=== PATIENT | male | born 1960 | race Caucasian/White ===

== ENCOUNTER → 2020-04-29 18:00 | Outpatient (BNVA) | payer SELFPAY | PROVIDERS: Visit Provider Nurse Practitioner Family | DX: J11.1 Influenza due to unidentified influenza virus with other respiratory manifestations (principal); F41.0 Panic disorder [episodic paroxysmal anxiety]; R50.9 Fever, unspecified; Z20.818 Contact with and (suspected) exposure to other bacterial communicable diseases | CPT/HCPCS: 87400; 87635 ==

== ENCOUNTER → 2020-10-10 09:54 | Outpatient (BNVA) | payer BC, SELFPAY | PROVIDERS: PCP Family Medicine; Visit Provider Surgery | DX: R10.9 Unspecified abdominal pain (principal) | CPT/HCPCS: 87635 ==

== ENCOUNTER 2020-10-15 05:49 | Day surgery (SDC) | payer BC, SELFPAY ==
[2020-10-14 10:33] VITALS: BMI 30.7
[2020-10-15] VITALS (8 sets, daily range): BP systolic 117–192; BP diastolic 59–108; PULSE 77–114; RESP 16–20; TEMP 36.5–36.9; O2SAT 95–99
[2020-10-15] MEDS: sodium chloride 0.9% 1,000 ML 30 ML IV (06:22)
--- NOTE | 2020-10-15 06:55 | W.PM.OPSUD ---
Surgery/Procedure H&P Update DATE OF PROCEDURE: October 15, 2020 DATE H&P PERFORMED: 09/30/20 H&P UPDATE INFORMATION: I have reviewed H&P completed within last 30 days, I have examined patient prior to procedure and No changes to prior documentation PLANNED PROCEDURE: Operation Date: 10/15/20 07:00 Proposed Procedures p Laparoscopic Cholecystectomy 24901 R10.9(Not Applicable) - Benito Fishman MD
[2020-10-15] MEDS: ciprofloxacin 400 MG/200 ML PREMIX 200 MG IV (07:10)
--- NOTE | 2020-10-15 07:18 | ANES.PREANE2 ---
Pre-Anesthetic Assessment Pre-Anesthetic Assessment: Height/Weight: Height 1.85 m Weight 105.687 kg Temp Pulse Resp BP Pulse Ox 98.5 F 114 H 18 192/108 98 10/15/20 06:13 10/15/20 06:13 10/15/20 06:13 10/15/20 06:13 10/15/20 06:13 Proposed Procedure: Operation Date: 10/15/20 07:00 Proposed Procedures p Laparoscopic Cholecystectomy 79331 R10.9(Not Applicable) - Benito Fishman MD Was Beta Betsy taken within 24 hours: N/A Last intake: Intake Last Liquid Date 10/14/20 Last Liquid Time 04:45 Last Solid Date 10/14/20 Last Solid Time 17:00 Social: Social History: No alcohol and No tobacco Exam: Pre-Anes Outpt Exam: alert, oriented x 3, clear to auscultation bilaterally and regular rate & rhythm Airway: Submandibular: WNL Cervical ROM: WNL MP: 2 Dentition: Full Pulmonary: Pulmonary: Sleep apnea CV/HEM: CV/HEM: HTN GI: GI: GERD Anesthetic Plan: ASA status: 3 Anesthesia: General Risk of > 500 ml blood loss (7ml/kg in children): No Meds/Allergies Current Medications: Current Medications Generic Name Dose Route Start Last Admin Trade Name Freq PRN Reason Stop Dose Admin Sodium Chloride 1,000 mls @ 30 ml s/hr 10/15/20 06:00 10/15/20 06:22 Sodium Chloride 0.9% IV 10/16/20 05:59 30 mls/hr .Q24H AN Administration PFSH Anesthesia PFSH: Medical History (Updated 09/30/20 @ 14:46 by Benito Fishman MD) BPH (benign prostatic hyperplasia) Hypertension Family History (Updated 09/30/20 @ 13:48 by LLOYD Díaz) Denies family history of Anesthesia complication Bleeding disorder Social History Smoking and tobacco status: never smoked Alcohol intake: never History of recent travel: No Current gender identity: Male Data Anesthesia Cardiac Studies: No Data to Display
--- NOTE | 2020-10-15 09:00 | PM.OP ---
Operative Report Date of procedure: October 15, 2020 Pre-op Diagnosis: cholelithiasis Post-op Diagnosis: Cholelithiasis Acute on chronic cholecystitis Procedure Done: Laparoscopic cholecystectomy Specimens removed/disposition: Gallbladder Surgeon: Benito Fishman Anesthesia: General Condition: stable Disposition: PACU Procedure: The patient was taken to the operating room and was intubated under general anesthesia. After the antibiotic had been administered, the abdomen was prepped and draped in a sterile manner. Using a #15 blade, a 1 centimeter infraumbilical curvilinear incision was made and using an open Sumit technique the peritoneal cavity was entered. A 10 millimeter port was placed and 15 millimeters of pneumoperitoneum was created. A 10 millimeter, 30 degrees scope was introduced. Three 5 millimeter ports were placed in the epigastric, midclavicular and the anterior axillary line two fingerbreadths below the costal margin on the right side under the direct visualization. The gallbladder wall was thickened and distended and packed with stones. An attempt was made to decompress the gallbladder with an aspiration needle but there was small amount of bile in the gallbladder was packed with stones. ratcheted forceps were introduced into the lateral most port and was used to retract the fundus of the gallbladder cephalad and using forceps the infundibulum of the gallbladder was retracted laterally. Using L-hook cautery the peritoneum overlying the Calot's triangle was opened medially and laterally until the cystic duct and the cystic artery were skeletonized.There was significant inflammation at the Calot's triangle. Dissection was carried along the body of the gallbladder and after ensuring critical view of safety, 4 clips applied on the cystic duct and 3 clips applied on the cystic artery and cut leaving, 3 clips on the remaining portion of the duct and 2 clips on the remaining portion of the artery. The rest of the gallbladder was dissected off the liver using L-hook cautery. The gallbladder wall was thickened and there was spillage of stones. There was no bleeding or bile leaking noted from the gallbladder fossa and the clips appeared to be in place. 2 EndoCatch bags were introduced to remove the gallbladder as well as all the spilled stones. All the ports were removed under direct visualization and there was no bleeding noted from the port sites. The fascia of the umbilicus was closed using [id number] 0 Vicryl sutures and the subcutaneous tissue was approximated using 3-0 Vicryl sutures. The skin at all four ports were closed using 4-0 Monocryl and surgical glue. A total of 10 millimeters of 0.5% Marcaine was infiltrated around the port sites. The patient was stable throughout the procedure.
--- NOTE | 2020-10-15 09:36 | SUR.PHASEI ---
PT ON RA TRIAL PT SLEEPS IF NOT DISTURBED GOOD RESP EFFORT, SATS 93-95% NO DISTRESS NOTED ABD LARGE SOFT WITH 4 SITES D/I, BILAT SCD ON AND WORKING.
[2020-10-15] MEDS: HYDROcodone-acetaminophen 5-325 mg Tablet 1 TAB PO (10:03)
--- NOTE | 2020-10-15 12:00 | ANE.PACU2 ---
Inpatient post-anesthesia follow up: Airway intact: Yes Vital signs: Temperature 98 F Pulse Rate 81 Respiratory Rate 18 Blood Pressure 128/77 Pulse Oximetry 96 Oxygen Delivery Me thod Room Air Oxygen Flow Rate 8 Fraction of Inspir ed Oxygen Hydration adequate: Yes Nausea and vomiting: No Pain level: 1 Mental status: Baseline
== END 2020-10-15 11:25 | disposition home or self-care (01) ==
PROVIDERS: PCP Family Medicine; Visit Provider Surgery
PROC: 0FT44ZZ Resection of Gallbladder, Percutaneous Endoscopic Approach (ICD-10-PCS; CPT 47562; principal; 2020-10-15 07:00)
DX: K80.10 Calculus of gallbladder with chronic cholecystitis without obstruction (principal); G47.30 Sleep apnea, unspecified; I10 Essential (primary) hypertension; K21.9 Gastro-esophageal reflux disease without esophagitis; N40.0 Benign prostatic hyperplasia without lower urinary tract symptoms
CPT/HCPCS: 47562; 12345; 88304; J0330; J0744; J1100; J1885; J2370; J2405; J2710; J3010; J3490; J7030

== ENCOUNTER 2025-02-11 15:31 | Oncology outpatient (recurring) (ONCR) | payer BC, SELFPAY ==
[2025-02-11 16:42] LABS: Basophils % 0.6 %; Eosinophils # 0.1 10^3/uL (0.0-0.8); Eosinophils % 1.7 %; Hematocrit 43.4 % (37-53); Lymphocytes # 2.3 10^3/uL (0.8-4.8); Lymphocytes % 34.9 %; Mean Corpuscular HGB Conc 32.9 g/dL (30-55); Mean Corpuscular Hemoglobin 29.7 pg (27-33); Mean Corpuscular Volume 90.2 fl (82-101); Mean Platelet Volume 9.3 fL (7.4-10.4); Monocytes # 0.5 10^3/uL (0.2-0.9); Monocytes % 7.6 %; Neutrophils # 3.56 10^3/uL (1.8-7.7); Nucleated Red Blood Cells % 0 %; Platelet Count 267 10^3/cmm (157-399); Red Blood Count 4.81 10^6/uL (3.85-5.65); Red Cell Distribution Width 13.4 % (12.1-15.1); White Blood Count 6.47 10^3/uL (3.29-11.43)
[2025-02-11 16:57] LABS: Alanine Aminotransferase 26 U/L (0-41); Albumin Level 4.6 g/dL (3.5-5.2); Alkaline Phosphatase 71 U/L (40-130); Anion Gap 18.8 (5-19); Aspartate Amino Transferase 19 U/L (0-40); Blood Urea Nitrogen 17 mg/dL (8-23); Calcium 9.8 mg/dL (8.5-10.5); Carbon Dioxide 21 mmol/L (22-29); Chloride 104 mmol/L (98-107); Globulin 2.9 g/dL (1.3-4.6); Glomerular Filtration Rate 113.9 mL/min (90-130); Glucose 96 mg/dL (65-115); Lactate Dehydrogenase 123 U/L (135-225); Osmolality Calculated 291 mOsm/kg (285-295); Potassium 3.8 mmol/L (3.5-5.1); Sodium 140 mmol/L (136-145); Total Bilirubin 0.3 mg/dL (0.15-1.2); Total Protein 7.5 g/dL (6.6-8.7)
[2025-02-11 17:24] LABS: Hepatitis A Antibody IgM Non-Reactive (Nonreactive); Hepatitis B Core AB, Total Non-Reactive (Nonreactive); Hepatitis B Surface AB < 3.5 (11.5-1000); Hepatitis B Surface Antigen Non-Reactive (Nonreactive); Hepatitis C Virus Antibody Non-Reactive (Nonreactive)
== END 2025-03-04 23:59 | disposition home or self-care (01) ==
LOC: ONCMED 15:32
PROVIDERS: PCP Family Medicine; Visit Provider Internal Medicine Medical Oncology
DX: C82.90 Follicular lymphoma, unspecified, unspecified site (principal)
CPT/HCPCS: 36415; 80053; 83615; 85025; 86705; 86706; 86709; 86803; 87340

== ENCOUNTER 2025-02-20 05:40 | Day surgery (SDC) | payer BC, SELFPAY ==
[2025-02-20] VITALS (11 sets, daily range): BP systolic 86–165; BP diastolic 52–110; PULSE 57–95; RESP 10–18; TEMP 36.2–36.5; O2SAT 91–97; BMI 30.9
--- NOTE | 2025-02-20 05:55 | SC_ITS ---
WS: [id number] C-arm fluoroscopy for infusion port placement, 02/20/2025 Clinical Data: Port placement Comparison: None. Findings: Dr. Ram inserted a right infusion catheter. SC/C-arm FL for CVA 97502 Impression: Insertion of right infusion catheter.
[2025-02-20] MEDS: sodium chloride 0.9% 1,000 ML 30 ML IV (06:00)
--- NOTE | 2025-02-20 06:15 | ANES.PREANE2 ---
Pre-Anesthetic Assessment Height/Weight: Height 6 ft 1 in Weight 234 lb Temp Pulse Resp BP Pulse Ox O2 Del Method 97.5 F L 95 18 165/110 96 Room Air 02/20/25 06:00 02/20/25 06:00 02/20/25 06:00 02/20/25 06:00 02/20/25 06:00 02/20/25 06:01 Preop Diagnosis: Follicular lymphoma Operation Date: 02/20/25 08:00 Proposed Procedures p Portacath Placement 82022 C82.90 Z95.828(Not Applicable) - Theron Ram MD Was Beta Betsy taken within 24 hours: N/A Was Clonidine taken within 24 hours: N/A Social No alcohol and No tobacco Exam alert, oriented x 3, clear to auscultation bilaterally and regular rate & rhythm Airway Submandibular: within normal limits Cervical ROM: within normal limits Mallampati: Class IV Comments: Comments: Large underbite,. Periodontal disease, denies any loose teeth Anesthetic Plan ASA status: 4 Anesthesia: MAC Other: Patient states he had an episode of nausea after anesthesia in the past, scopolamine patch applied NPO since yesterday evening History of hypertension on benazepril and diltiazem GERD, controlled with omeprazole Patient has follicular lymphoma with plans to start chemotherapy after port placement Labs reviewed from 02/11/2025 and acceptable for procedure Plan for MAC anesthesia Medications/Allergies Home Medications ?Medication ?Instructions ?Recorded ?Confirmed ?Last Taken ?Type tamsulosin 0.4 mg capsule (Flomax) 0.4 mg PO DAILY 04/29/20 02/19/25 02/19/25 History omeprazole 20 mg capsule,delayed 20 mg PO DAILY 10/14/20 02/19/25 02/20/25 History release benazepril 40 mg tablet 40 mg PO DAILY 02/11/25 02/19/25 02/20/25 History diltiazem HCl 360 mg capsule,24 360 mg PO DAILY 02/11/25 02/19/25 02/20/25 History hr,extended release (Tiadylt ER) doxazosin 4 mg tablet 4 mg PO DAILY 02/11/25 02/19/25 02/20/25 History allopurinol 300 mg tablet 300 mg PO DAILY #30 tabs 02/12/25 02/19/25 02/20/25 Rx fluconazole 100 mg tablet 100 mg PO DAILY fungal infection 02/12/25 02/20/25 Unknown Rx prevention #90 tabs ondansetron HCl 4 mg tablet 4 mg PO Q6H PRN nausea and 02/12/25 02/20/25 Unknown Rx vomiting #30 tabs prochlorperazine maleate 10 mg 10 mg PO Q4H PRN mild nausea #30 02/12/25 02/20/25 Unknown Rx tablet (Compazine) tabs sulfamethoxazole 800 1 tab PO MOWEFR infection 02/12/25 02/19/25 Unknown Rx mg-trimethoprim 160 mg tablet prevention #24 tabs (Bactrim DS) valacyclovir 500 mg tablet 500 mg PO BID #60 tabs 02/12/25 02/19/25 Unknown Rx alprazolam 0.5 mg tablet (Xanax) 0.5 mg PO TID PRN nervousness 02/19/25 02/20/25 02/20/25 History bendamustine 100 mg intravenous 276 mg IV .daily x2 days 21 days 02/19/25 02/19/25 Unknown Rx powder for solution #6 ea palonosetron 0.25 mg/2 mL 0.25 mg (2 mL) IV .once on day 2 02/19/25 02/20/25 Unknown Rx intravenous solution 21 days #2 mL pegfilgrastim 6 mg/0.6 mL 6 mg (0.6 mL) SUBCUT .on day 2 21 02/19/25 02/20/25 Unknown Rx (deliverable) wearable days #0.6 mL subcutaneous injector (Neulasta Onpro) rituximab-pvvr 10 mg/mL 850 mg (85 mL) IV .on day 2 21 02/19/25 02/20/25 Unknown Rx intravenous solution days #100 mL Allergies Allergy/AdvReac Type Severity Reaction Status Date / Time amoxicillin (From Augmentin) Allergy Unknown ALGY-Rash Verified 02/20/25 06:07 clavulanic acid (From Allergy Unknown ALGY-Rash Verified 02/20/25 06:07 Augmentin) Iodinated Contrast Media Allergy ADR-Itching Verified 02/20/25 06:07 PFSH Anesthesia Medical History BPH (benign prostatic hyperplasia) Hypertension Surgical History Status post colonoscopy Status post laparoscopic cholecystectomy (10/15/20) Family History Denies family history of Anesthesia complication Bleeding disorder Social History Smoking and tobacco/nicotine status: never used tobacco/nicotine Alcohol intake: never Substance/Drug Use: never Current gender identity: Male
[2025-02-20] MEDS: metoclopramide 5 mg/mL SDV 2 mL 10 MG IVP (06:21)
[2025-02-20] MEDS: famotidine 20 mg/2 mL INJ IVP (06:21)
[2025-02-20] MEDS: scopolamine 1 mg PATCH 1 PATCH TRANSDERMA (06:42)
--- NOTE | 2025-02-20 07:00 | W.PM.OPSUD ---
Surgery/Procedure H&P Update DATE OF PROCEDURE: February 20, 2025 DATE H&P PERFORMED: 02/14/25 H&P UPDATE INFORMATION: I have reviewed H&P completed within last 30 days, I have examined patient prior to procedure and No changes to prior documentation PREOP DIAGNOSIS: Follicular lymphoma PLANNED PROCEDURE: Operation Date: 02/20/25 08:00 Proposed Procedures p Portacath Placement 28613 C82.90 Z95.828(Not Applicable) - Theron Ram MD
[2025-02-20] MEDS: VANCOMYCIN ADD-Vantage 1,000 MG in 0.9% NaCl ADD-Vantage 250 ML 250 MG IV (07:05)
[2025-02-20] MEDS: lidocaine-epi 1% 20 mL INJ INJECTION (08:09)
[2025-02-20] MEDS: heparin, porcine 1,000 unit/mL INJ 10 mL 10000 UNIT IRRIGATION (08:09)
[2025-02-20] MEDS: BUPivacaine 0.25% INJ 10 mL INJECTION (08:09)
--- NOTE | 2025-02-20 08:22 | PM.OP ---
Operative Report Date of procedure: February 20, 2025 Pre-op diagnosis: Renal cell carcinoma Post-op diagnosis: same Post-op findings: Tip of catheter at atriocaval junction confirmed with intraoperative fluoroscopy. Procedure done: Port-A-Cath placement Implants: Port-A-Cath Specimens removed/disposition: N/A Pathology: none sent Surgeon: Theron Ram MD Risk Control Manager: N/A Anesthesia: MAC Estimated blood loss (mL): 10 Complications: NA Findings: Tip of catheter at atriocaval junction. Confirmed with intraoperative fluoroscopy. Right internal jugular vein accessed using ultrasound guidance. Condition: stable Disposition: same day Brief History: 64-year-old male with renal cell carcinoma. Needed port for chemotherapy administration. Discussed risk and benefits and patient agreed to proceed with port placement. Procedure: Patient was brought into the operating room and a timeout was carried out. Procedure was done under MAC. Patient was placed supine with the arms tucked and in Trendelenburg. Patient was prepped and draped in the usual sterile fashion. Using ultrasound guidance the right internal jugular vein was accessed. A guidewire was then placed down to the atriocaval junction using fluoroscopy. The finder needle was removed and the guidewire was secured. I then turned my attention to creating a pocket over the right chest. Make sure to locally infiltrated using plain lidocaine and bupivacaine at the site of the pocket and throughout the tunnel site. I confirmed adequate hemostasis at the pocket. I then proceeded to place the port that was already preassembled and flushed with heparinized saline and the chest pocket. I tunneled the catheter from the chest to the neck at the site where I accessed the internal jugular vein. I measured and adjusted the length of the catheter so it would reach the atrial caval junction. At this point, I used a dilator to dilate the tract into the internal jugular vein using fluoroscopy. I removed the guidewire and proceeded to thread the central venous catheter through the introducer. In the process, I removed the sheath as a completely pushed the catheter into the internal jugular vein. I then confirmed adequate placement of the catheter by performing intraoperative interpretation of fluoroscopy. The tip of the catheter was confirmed to be placed in the atriocaval junction. There were no kinks noted throughout the trajectory of the catheter. I then proceeded to test the port and was satisfied with its functionality. I proceeded to flushed the catheter without any issues. I then hep-locked the port. Skin was closed using deep dermal 3-0 Vicryl, subcuticular 4-0 Monocryl, and Dermabond. Patient was then transferred to PACU without any complications.
--- NOTE | 2025-02-20 10:10 | ANE.PACU2 ---
Inpatient post-anesthesia follow up: Airway intact: Yes Vital signs: Temperature 97.2 F Pulse Rate 65 Respiratory Rate 16 Blood Pressure 116/71 Pulse Oximetry 93 Oxygen Delivery Me thod Room Air Oxygen Flow Rate 8 Fraction of Inspir ed Oxygen Hydration adequate: Yes Nausea and vomiting: No Pain level: 1 Mental status: Baseline
== END 2025-02-20 10:10 | disposition home or self-care (01) ==
PROVIDERS: PCP Family Medicine; Visit Provider Student in an Organized Health Care Education/Training Program
PROC: (CPT 36561; principal; 2025-02-20 08:00)
DX: C64.9 Malignant neoplasm of unspecified kidney, except renal pelvis (principal); C82.90 Follicular lymphoma, unspecified, unspecified site; I10 Essential (primary) hypertension; K21.9 Gastro-esophageal reflux disease without esophagitis
CPT/HCPCS: 36561; 76000; 77001; C1788; J1100; J1644; J2405; J2704; J2765; J3010; J3370; J3490; J7030; J7050; J9999

== ENCOUNTER 2025-03-19 08:41 | Oncology outpatient (recurring) (ONCR) | payer BC, SELFPAY | END 2025-04-04 23:59 | disposition home or self-care (01) | PROVIDERS: PCP Family Medicine; Visit Provider Internal Medicine Medical Oncology | DX: Z45.2 Encounter for adjustment and management of vascular access device (principal) | CPT/HCPCS: 96523 ==

== ENCOUNTER 2025-05-01 07:41 | Oncology outpatient (recurring) (ONCR) | payer BC, SELFPAY ==
[2025-04-08 13:16] LABS: Hematocrit 40.4 % (37-53); Hemoglobin 13.60 g/dL (11.27-16.99); Mean Corpuscular HGB Conc 33.7 g/dL (30-55); Mean Corpuscular Hemoglobin 30.0 pg (27-33); Mean Corpuscular Volume 89.0 fl (82-101); Nucleated Red Blood Cells % 0 %; Platelet Count 243 10^3/cmm (157-399); Red Blood Count 4.54 10^6/uL (3.85-5.65); White Blood Count 6.13 10^3/uL (3.29-11.43)
[2025-04-08 13:38] LABS: Alanine Aminotransferase 16 U/L (0-41); Albumin Level 4.2 g/dL (3.5-5.2); Alkaline Phosphatase 74 U/L (40-130); Anion Gap 15.4 (5-19); Aspartate Amino Transferase 16 U/L (0-40); Blood Urea Nitrogen 14 mg/dL (8-23); Calcium 9.1 mg/dL (8.5-10.5); Carbon Dioxide 25 mmol/L (22-29); Chloride 106 mmol/L (98-107); Globulin 2.7 g/dL (1.3-4.6); Glucose 106 mg/dL (65-115); Osmolality Calculated 295 mOsm/kg (285-295); Potassium 4.4 mmol/L (3.5-5.1); Sodium 142 mmol/L (136-145); Total Protein 6.9 g/dL (6.6-8.7)
[2025-04-09] VITALS (11 sets, daily range): BP systolic 99–138; BP diastolic 54–78; PULSE 6–74; RESP 17–18; TEMP 36–36.8; O2SAT 92–95
[2025-04-09] MEDS: ondansetron 2 mg/ML SDV 2 mL 8 MG IVP (08:33)
[2025-04-09] MEDS: dexamethasone 4 mg/mL INJ 5 mL 12 MG IVP (08:33)
[2025-04-09] MEDS: diphenhydrAMINE 50 mg/mL SDV 1mL 25 MG IVP (08:34)
[2025-04-09] MEDS: SODIUM CHLORIDE 0.9% IV ×2 (09:18→13:41)
[2025-04-09] MEDS: RITUXIMAB ARRX IV (09:18)
--- NOTE | 2025-04-09 11:05 | PC.NURSE ---
Approximately 10:53 patient complained of mild itching on the bilateral ears and roof of mouth. Rituxan infusion was immediately paused, vitals taken and showed patient stable. A liter bag of sodium chloride was started and 2 liters of O2 applied.
--- NOTE | 2025-04-09 11:21 | PC.NURSE ---
Approximately 11:20 patient stated symptoms of itching had subsided. Pepcid was administered as a precaution due to MAR instruction for hypersensitivity. Continuing to monitor patient on one-on-one basis to ensure hypersensitivity reaction does not reoccur. Oxygen at 2L discontinued.
[2025-04-09] MEDS: BENDAMUSTINE IV (13:41)
[2025-04-10 08:17] VITALS: BP 173/94; PULSE 106; RESP 17; TEMP 36.9; O2SAT 98
[2025-04-10] MEDS: dexamethasone 4 mg/mL INJ 5 mL 12 MG IVP (09:05)
[2025-04-10] MEDS: BENDAMUSTINE IV (09:38)
[2025-04-10] MEDS: SODIUM CHLORIDE 0.9% IV (09:38)
[2025-04-10 09:57] VITALS: BP 128/72; PULSE 72; RESP 18; TEMP 37
[2025-04-17 10:01] LABS: Hematocrit 40.9 % (37-53); Hemoglobin 13.70 g/dL (11.27-16.99); Mean Corpuscular HGB Conc 33.5 g/dL (30-55); Mean Corpuscular Hemoglobin 29.6 pg (27-33); Mean Corpuscular Volume 88.3 fl (82-101); Nucleated Red Blood Cells % 0 %; Platelet Count 266 10^3/cmm (157-399); Red Blood Count 4.63 10^6/uL (3.85-5.65); White Blood Count 6.22 10^3/uL (3.29-11.43)
[2025-04-17 10:27] LABS: Alanine Aminotransferase 27 U/L (0-41); Albumin Level 4.3 g/dL (3.5-5.2); Alkaline Phosphatase 73 U/L (40-130); Anion Gap 15.4 (5-19); Aspartate Amino Transferase 14 U/L (0-40); Blood Urea Nitrogen 21 mg/dL (8-23); Calcium 9.6 mg/dL (8.5-10.5); Carbon Dioxide 25 mmol/L (22-29); Chloride 104 mmol/L (98-107); Creatinine Clr Calc Pharmacy 105.0437; Globulin 2.8 g/dL (1.3-4.6); Glucose 97 mg/dL (65-115); Osmolality Calculated 293 mOsm/kg (285-295); Potassium 4.4 mmol/L (3.5-5.1); Sodium 140 mmol/L (136-145); Total Protein 7.1 g/dL (6.6-8.7); Uric Acid 4.4 mg/dL (3.4-7.0)
[2025-04-23 07:56] LABS: Hematocrit 40.8 % (37-53); Hemoglobin 13.70 g/dL (11.27-16.99); Mean Corpuscular HGB Conc 33.6 g/dL (30-55); Mean Corpuscular Hemoglobin 30.1 pg (27-33); Mean Corpuscular Volume 89.7 fl (82-101); Nucleated Red Blood Cells % 0 %; Platelet Count 244 10^3/cmm (157-399); Red Blood Count 4.55 10^6/uL (3.85-5.65); White Blood Count 4.96 10^3/uL (3.29-11.43)
[2025-04-23 08:15] LABS: Alanine Aminotransferase 20 U/L (0-41); Albumin Level 4.4 g/dL (3.5-5.2); Alkaline Phosphatase 71 U/L (40-130); Anion Gap 15.2 (5-19); Aspartate Amino Transferase 16 U/L (0-40); Blood Urea Nitrogen 15 mg/dL (8-23); Calcium 9.4 mg/dL (8.5-10.5); Carbon Dioxide 26 mmol/L (22-29); Chloride 102 mmol/L (98-107); Creatinine Clr Calc Pharmacy 118.1741; Globulin 2.7 g/dL (1.3-4.6); Glucose 93 mg/dL (65-115); Osmolality Calculated 289 mOsm/kg (285-295); Potassium 4.2 mmol/L (3.5-5.1); Sodium 139 mmol/L (136-145); Total Protein 7.1 g/dL (6.6-8.7)
[2025-04-30] VITALS (7 sets, daily range): BP systolic 114–135; BP diastolic 67–83; PULSE 64–99; RESP 16–17; TEMP 36.4–37; O2SAT 95–98
[2025-04-30 07:19] LABS: Hematocrit 39.1 % (37-53); Hemoglobin 13.20 g/dL (11.27-16.99); Mean Corpuscular HGB Conc 33.8 g/dL (30-55); Mean Corpuscular Hemoglobin 30.3 pg (27-33); Mean Corpuscular Volume 89.7 fl (82-101); Nucleated Red Blood Cells % 0 %; Platelet Count 221 10^3/cmm (157-399); Red Blood Count 4.36 10^6/uL (3.85-5.65); White Blood Count 3.33 10^3/uL (3.29-11.43)
[2025-04-30 07:42] LABS: Alanine Aminotransferase 22 U/L (0-41); Albumin Level 4.4 g/dL (3.5-5.2); Alkaline Phosphatase 75 U/L (40-130); Anion Gap 13.9 (5-19); Aspartate Amino Transferase 21 U/L (0-40); Blood Urea Nitrogen 12 mg/dL (8-23); Calcium 9.5 mg/dL (8.5-10.5); Carbon Dioxide 25 mmol/L (22-29); Chloride 104 mmol/L (98-107); Creatinine Clr Calc Pharmacy 118.1741; Globulin 2.6 g/dL (1.3-4.6); Glucose 98 mg/dL (65-115); Osmolality Calculated 288 mOsm/kg (285-295); Potassium 3.9 mmol/L (3.5-5.1); Sodium 139 mmol/L (136-145); Total Protein 7.0 g/dL (6.6-8.7)
[2025-04-30] MEDS: diphenhydrAMINE 50 mg/mL SDV 1mL 25 MG IVP (08:56)
[2025-04-30] MEDS: dexamethasone 4 mg/mL INJ 5 mL 12 MG IVP (08:57)
[2025-04-30] MEDS: GRANISETRON 1 MG/ML IV (08:58)
[2025-04-30] MEDS: SODIUM CHLORIDE 0.9% IV ×2 (09:36→13:50)
[2025-04-30] MEDS: RITUXIMAB ARRX IV (09:36)
[2025-04-30] MEDS: BENDAMUSTINE IV (13:50)
[2025-05-01] MEDS: dexamethasone 4 mg/mL INJ 5 mL 12 MG IVP (08:29)
[2025-05-01] MEDS: GRANISETRON 1 MG/ML IV (08:30)
[2025-05-01] MEDS: BENDAMUSTINE IV (08:58)
[2025-05-01] MEDS: SODIUM CHLORIDE 0.9% IV (08:58)
[2025-05-01 09:16] VITALS: BP 147/81; PULSE 86; RESP 18; TEMP 36.6; O2SAT 95
== END 2025-05-05 23:59 | disposition home or self-care (01) ==
PROVIDERS: Nurse Practitioner; Nurse Practitioner Family; PCP Family Medicine; Visit Provider Internal Medicine
DX: Z51.11 Encounter for antineoplastic chemotherapy (principal); C82.90 Follicular lymphoma, unspecified, unspecified site; Z79.52 Long term (current) use of systemic steroids; Z79.899 Other long term (current) drug therapy
CPT/HCPCS: 36591; 80053; 83615; 84100; 84550; 85025; 96375; 96409; 96411; 96413; 96415; 96417; J1100; J1200; J1626; J2405; J3490; J7030; J7040; J7050; J9034; J9999; Q5123

== ENCOUNTER 2025-05-22 08:00 | Oncology outpatient (recurring) (ONCR) | payer BC, SELFPAY ==
[2025-05-07 09:08] LABS: Hematocrit 39.6 % (37-53); Hemoglobin 13.30 g/dL (11.27-16.99); Mean Corpuscular HGB Conc 33.6 g/dL (30-55); Mean Corpuscular Hemoglobin 30.1 pg (27-33); Mean Corpuscular Volume 89.6 fl (82-101); Nucleated Red Blood Cells % 0 %; Platelet Count 188 10^3/cmm (157-399); Red Blood Count 4.42 10^6/uL (3.85-5.65); White Blood Count 4.82 10^3/uL (3.29-11.43)
[2025-05-07 09:26] LABS: Alanine Aminotransferase 22 U/L (0-41); Albumin Level 4.1 g/dL (3.5-5.2); Alkaline Phosphatase 67 U/L (40-130); Aspartate Amino Transferase 18 U/L (0-40); Blood Urea Nitrogen 17 mg/dL (8-23); Calcium 9.7 mg/dL (8.5-10.5); Carbon Dioxide 26 mmol/L (22-29); Chloride 101 mmol/L (98-107); Globulin 2.9 g/dL (1.3-4.6); Glucose 95 mg/dL (65-115); Osmolality Calculated 285 mOsm/kg (285-295); Sodium 137 mmol/L (136-145); Total Protein 7.0 g/dL (6.6-8.7); Uric Acid 4.1 mg/dL (3.4-7.0)
[2025-05-07 10:05] LABS: Anion Gap 14.1 (5-19); Potassium 4.1 mmol/L (3.5-5.1)
[2025-05-14 08:55] LABS: Hematocrit 38.3 % (37-53); Hemoglobin 12.70 g/dL (11.27-16.99); Mean Corpuscular HGB Conc 33.2 g/dL (30-55); Mean Corpuscular Hemoglobin 30.5 pg (27-33); Mean Corpuscular Volume 92.1 fl (82-101); Nucleated Red Blood Cells % 0 %; Platelet Count 176 10^3/cmm (157-399); Red Blood Count 4.16 10^6/uL (3.85-5.65); White Blood Count 4.56 10^3/uL (3.29-11.43)
[2025-05-14 09:15] LABS: Alanine Aminotransferase 20 U/L (0-41); Albumin Level 4.1 g/dL (3.5-5.2); Alkaline Phosphatase 64 U/L (40-130); Anion Gap 16.9 (5-19); Aspartate Amino Transferase 17 U/L (0-40); Blood Urea Nitrogen 12 mg/dL (8-23); Calcium 9.2 mg/dL (8.5-10.5); Carbon Dioxide 25 mmol/L (22-29); Chloride 104 mmol/L (98-107); Globulin 2.6 g/dL (1.3-4.6); Glucose 121 mg/dL (65-115); Osmolality Calculated 295 mOsm/kg (285-295); Potassium 3.9 mmol/L (3.5-5.1); Sodium 142 mmol/L (136-145); Total Protein 6.7 g/dL (6.6-8.7)
[2025-05-21 08:20] LABS: Hematocrit 38.6 % (37-53); Hemoglobin 13.10 g/dL (11.27-16.99); Mean Corpuscular HGB Conc 33.9 g/dL (30-55); Mean Corpuscular Hemoglobin 30.8 pg (27-33); Mean Corpuscular Volume 90.6 fl (82-101); Nucleated Red Blood Cells % 0 %; Platelet Count 219 10^3/cmm (157-399); Red Blood Count 4.26 10^6/uL (3.85-5.65); White Blood Count 3.39 10^3/uL (3.29-11.43)
[2025-05-21 08:33] LABS: Alanine Aminotransferase 38 U/L (0-41); Albumin Level 4.4 g/dL (3.5-5.2); Alkaline Phosphatase 68 U/L (40-130); Anion Gap 16.4 (5-19); Aspartate Amino Transferase 29 U/L (0-40); Blood Urea Nitrogen 14 mg/dL (8-23); Calcium 9.6 mg/dL (8.5-10.5); Carbon Dioxide 26 mmol/L (22-29); Chloride 101 mmol/L (98-107); Globulin 2.8 g/dL (1.3-4.6); Glucose 109 mg/dL (65-115); Osmolality Calculated 289 mOsm/kg (285-295); Potassium 4.4 mmol/L (3.5-5.1); Sodium 139 mmol/L (136-145); Total Protein 7.2 g/dL (6.6-8.7)
[2025-05-21] MEDS: dexamethasone 4 mg/mL INJ 5 mL 12 MG IVP (10:39)
[2025-05-21] MEDS: GRANISETRON 1 MG/ML IV (10:42)
[2025-05-21 11:13] VITALS: BP 155/82; PULSE 83; RESP 17; TEMP 36.6; O2SAT 97
[2025-05-21] MEDS: SODIUM CHLORIDE 0.9% IV ×2 (11:15→14:21)
[2025-05-21] MEDS: RITUXIMAB ARRX IV (11:15)
[2025-05-21 11:48] VITALS: BP 124/74; PULSE 89; RESP 17; TEMP 36.7; O2SAT 93
[2025-05-21 12:19] VITALS: BP 116/74; PULSE 75; RESP 17; TEMP 36.3; O2SAT 94
[2025-05-21 12:51] VITALS: BP 120/69; PULSE 62; RESP 17; TEMP 36.9; O2SAT 94
[2025-05-21] MEDS: BENDAMUSTINE IV (14:21)
[2025-05-21 14:57] VITALS: BP 145/84; PULSE 79; RESP 16; TEMP 36.1; O2SAT 98
[2025-05-22 08:13] VITALS: BP 157/83; PULSE 110; RESP 18; TEMP 36.8; O2SAT 97
[2025-05-22] MEDS: dexamethasone 4 mg/mL INJ 5 mL 12 MG IVP (08:55)
[2025-05-22] MEDS: GRANISETRON 1 MG/ML IV (09:01)
[2025-05-22] MEDS: BENDAMUSTINE IV (09:24)
[2025-05-22] MEDS: SODIUM CHLORIDE 0.9% IV (09:24)
[2025-05-22 09:56] VITALS: BP 115/72; PULSE 80
== END 2025-06-04 23:59 | disposition home or self-care (01) ==
PROVIDERS: Internal Medicine Medical Oncology; Nurse Practitioner; PCP Family Medicine; Visit Provider Internal Medicine
DX: Z51.11 Encounter for antineoplastic chemotherapy; C82.90 Follicular lymphoma, unspecified, unspecified site; Z79.899 Other long term (current) drug therapy; Z79.52 Long term (current) use of systemic steroids; Z53.9 Procedure and treatment not carried out, unspecified reason
CPT/HCPCS: 36591; 80053; 83615; 84100; 84550; 85025; 96375; 96409; 96413; 96415; 96417; J1100; J1626; J7040; J7050; J9034; J9999; Q5123

== ENCOUNTER 2025-06-19 08:00 | Oncology outpatient (recurring) (ONCR) | payer BC, SELFPAY ==
--- NOTE | 2025-06-07 08:00 | PETR_ITS ---
PROCEDURE INFORMATION: Exam: PET/CT Skull Base to Mid-thigh Exam date and time: 06/07/2025 9:03 AM Age: 64 years old Clinical indication: Condition or disease; Primary cancer: Follicular lymphoma LABS AND CLINICAL REPORTS: Glucose: 124 mg/dl Treatment strategy for malignancy (PET staging): Restaging (PS) TECHNIQUE: Imaging protocol: Following at least four-hour fasting and following the injection of radiopharmaceutical, low dose CT images were obtained. Then, PET images were obtained. Attenuation corrected images were constructed using the CT scan. Fused images of PET and CT were reviewed. The standardized uptake values (SUV) reported below are maximum values within a region of interest, expressed in gm/ml. Exam includes orbital meatal line to mid-thigh. SUV normalization method: BodyWeight Radiopharmaceutical: 12.51 mCi F-18 FDG (Fluorodeoxyglucose), IV. Time of imaging post radiopharmaceutical administration: 47 minutes Injection site: right ac COMPARISON: PT PET Scan 12/19/2024 9:43 AM FINDINGS: Tubes, catheters and devices: Right chest port terminates near the superior cavoatrial junction. Brain: Visualized brain has normal physiologic uptake. Pharynx: No abnormal uptake. Larynx: No abnormal uptake. Lungs, pleura and trachea: No abnormal uptake. Mild platelike atelectasis versus scarring at the lower lungs. Heart: Normal physiologic uptake. Coronary arteries: Heavy coronary artery calcification. Mediastinal space: No abnormal uptake. Liver: No abnormal uptake. Redemonstrated hepatic cysts. Gallbladder and biliary ducts: No abnormal uptake. Prior cholecystectomy. Pancreas: No abnormal uptake. Spleen: No abnormal uptake. No splenomegaly. Adrenal glands: No abnormal uptake. Kidneys and ureters: Normal physiologic uptake. Stable size bilateral renal masses with decreased FDG uptake, index 5.4 cm left upper renal mass on axial image 173 showing SUV max 3.6 (previously 6.3) and 4.8 cm posterior left renal mass on axial image 195 showing SUV max 3.6 (previously 5.6). Stomach and bowel: No abnormal uptake. Colonic diverticulosis without findings of diverticulitis. Reproductive: Prostatomegaly. No abnormal uptake. Vasculature: No abnormal uptake. Mild systemic atherosclerotic calcification without aortic aneurysm. Lymph nodes: No abnormal uptake. No lymphadenopathy in the head, neck, chest, abdomen, pelvis, and extremities. Resolved mesenteric lymphadenopathy. Skeleton: Decreased right superior acetabular FDG uptake showing SUV max 2.5 on axial image 263, previously 13.2. Mildly increased posterior left iliac sclerosis with resolved FDG avidity. Degenerative change along the spine, shoulders and sacroiliac joints. Soft tissues: No abnormal uptake in the visualized head, neck, chest, abdomen, pelvis, and extremities. METRICS: Mediastinal blood pool: SUV mean 2.2 Liver uptake: SUV mean 2.5 PET/PET skull to thigh SUBS [id number] IMPRESSION: Deauville 4 partial response with decreased metabolic activity at bilateral renal masses, resolved mesenteric lymphadenopathy, and decreased right superior acetabular uptake with resolved posterior left iliac uptake.
[2025-06-11 08:08] LABS: Hematocrit 38.6 % (37-53); Hemoglobin 13.30 g/dL (11.27-16.99); Mean Corpuscular HGB Conc 34.5 g/dL (30-55); Mean Corpuscular Hemoglobin 32.0 pg (27-33); Mean Corpuscular Volume 92.8 fl (82-101); Nucleated Red Blood Cells % 0 %; Platelet Count 198 10^3/cmm (157-399); Red Blood Count 4.16 10^6/uL (3.85-5.65); White Blood Count 3.09 10^3/uL (3.29-11.43)
[2025-06-11 08:23] LABS: Alanine Aminotransferase 55 U/L (0-41); Albumin Level 4.2 g/dL (3.5-5.2); Alkaline Phosphatase 64 U/L (40-130); Anion Gap 14.8 (5-19); Aspartate Amino Transferase 36 U/L (0-40); Blood Urea Nitrogen 15 mg/dL (8-23); Calcium 9.6 mg/dL (8.5-10.5); Carbon Dioxide 26 mmol/L (22-29); Chloride 105 mmol/L (98-107); Globulin 2.6 g/dL (1.3-4.6); Glucose 105 mg/dL (65-115); Osmolality Calculated 295 mOsm/kg (285-295); Potassium 3.8 mmol/L (3.5-5.1); Sodium 142 mmol/L (136-145); Total Protein 6.8 g/dL (6.6-8.7)
[2025-06-18 08:08] LABS: Hematocrit 38.5 % (37-53); Hemoglobin 13.00 g/dL (11.27-16.99); Mean Corpuscular HGB Conc 33.8 g/dL (30-55); Mean Corpuscular Hemoglobin 31.1 pg (27-33); Mean Corpuscular Volume 92.1 fl (82-101); Nucleated Red Blood Cells % 0 %; Platelet Count 224 10^3/cmm (157-399); Red Blood Count 4.18 10^6/uL (3.85-5.65); White Blood Count 3.37 10^3/uL (3.29-11.43)
[2025-06-18 08:27] LABS: Alanine Aminotransferase 30 U/L (0-41); Albumin Level 4.3 g/dL (3.5-5.2); Alkaline Phosphatase 66 U/L (40-130); Anion Gap 15.2 (5-19); Aspartate Amino Transferase 22 U/L (0-40); Blood Urea Nitrogen 12 mg/dL (8-23); Calcium 9.4 mg/dL (8.5-10.5); Carbon Dioxide 27 mmol/L (22-29); Chloride 103 mmol/L (98-107); Creatinine Clr Calc Pharmacy 115.3594; Globulin 2.4 g/dL (1.3-4.6); Glucose 126 mg/dL (65-115); Osmolality Calculated 293 mOsm/kg (285-295); Potassium 4.2 mmol/L (3.5-5.1); Sodium 141 mmol/L (136-145); Total Protein 6.7 g/dL (6.6-8.7)
[2025-06-18] MEDS: dexamethasone 4 mg/mL INJ 5 mL 12 MG IVP (09:37)
[2025-06-18] MEDS: ondansetron 2 mg/ML SDV 2 mL 8 MG IVP (09:39)
[2025-06-18 09:45] VITALS: BP 140/90; PULSE 84; RESP 17; TEMP 36.8; O2SAT 95
[2025-06-18 10:03] VITALS: BP 113/69; PULSE 82; RESP 17; TEMP 36.7; O2SAT 94
[2025-06-18] MEDS: SODIUM CHLORIDE 0.9% IV ×2 (10:03→13:11)
[2025-06-18] MEDS: RITUXIMAB ARRX IV (10:03)
[2025-06-18 10:36] VITALS: BP 128/76; PULSE 71; RESP 17; TEMP 36.4; O2SAT 95
[2025-06-18 11:07] VITALS: BP 115/72; PULSE 76; RESP 16; TEMP 36.7; O2SAT 95
[2025-06-18 11:37] VITALS: BP 111/68; PULSE 61; RESP 16; TEMP 36.4; O2SAT 93
[2025-06-18] MEDS: BENDAMUSTINE IV (13:11)
[2025-06-18 13:48] VITALS: BP 96/60; PULSE 53; RESP 17; TEMP 36.3; O2SAT 97
[2025-06-19] MEDS: dexamethasone 4 mg/mL INJ 5 mL 12 MG IVP (08:12)
[2025-06-19] MEDS: SODIUM CHLORIDE 0.9% IV (08:47)
[2025-06-19] MEDS: BENDAMUSTINE IV (08:47)
[2025-06-19 08:58] VITALS: BP 146/82; PULSE 96; RESP 17; TEMP 37; O2SAT 99
== END 2025-07-05 23:59 | disposition home or self-care (01) ==
PROVIDERS: PCP Family Medicine; Visit Provider Internal Medicine Medical Oncology
DX: Z53.9 Procedure and treatment not carried out, unspecified reason; Z51.11 Encounter for antineoplastic chemotherapy; C82.90 Follicular lymphoma, unspecified, unspecified site; Z79.899 Other long term (current) drug therapy
CPT/HCPCS: 78815; 80053; 83615; 85025; 96375; 96411; 96413; 96415; A9552; J1100; J2405; J2469; J7040; J7050; J9034; J9999; Q5123

== ENCOUNTER 2025-07-17 07:49 | Oncology outpatient (recurring) (ONCR) | payer BC, SELFPAY ==
[2025-07-16 07:26] LABS: Hematocrit 39.0 % (37-53); Hemoglobin 13.20 g/dL (11.27-16.99); Mean Corpuscular HGB Conc 33.8 g/dL (30-55); Mean Corpuscular Hemoglobin 32.5 pg (27-33); Mean Corpuscular Volume 96.1 fl (82-101); Nucleated Red Blood Cells % 0 %; Platelet Count 194 10^3/cmm (157-399); Red Blood Count 4.06 10^6/uL (3.85-5.65); White Blood Count 3.24 10^3/uL (3.29-11.43)
[2025-07-16 07:48] LABS: Alanine Aminotransferase 21 U/L (0-41); Albumin Level 4.3 g/dL (3.5-5.2); Alkaline Phosphatase 66 U/L (40-130); Anion Gap 14.0 (5-19); Aspartate Amino Transferase 21 U/L (0-40); Blood Urea Nitrogen 14 mg/dL (8-23); Calcium 9.3 mg/dL (8.5-10.5); Carbon Dioxide 26 mmol/L (22-29); Chloride 105 mmol/L (98-107); Globulin 2.6 g/dL (1.3-4.6); Glucose 108 mg/dL (65-115); Osmolality Calculated 293 mOsm/kg (285-295); Potassium 4.0 mmol/L (3.5-5.1); Sodium 141 mmol/L (136-145); Total Protein 6.9 g/dL (6.6-8.7)
[2025-07-16] MEDS: dexamethasone 4 mg/mL INJ 5 mL 12 MG IVP (09:21)
[2025-07-16] MEDS: GRANISETRON 1 MG/ML IV (09:31)
[2025-07-16 09:57] VITALS: BP 117/71; PULSE 70; RESP 17; TEMP 37.1; O2SAT 95
[2025-07-16] MEDS: RITUXIMAB ARRX IV (10:03)
[2025-07-16] MEDS: SODIUM CHLORIDE 0.9% IV ×2 (10:03→13:09)
[2025-07-16 10:33] VITALS: BP 129/75; PULSE 68; RESP 17; TEMP 36.5; O2SAT 97
[2025-07-16 11:05] VITALS: BP 130/67; PULSE 71; RESP 17; TEMP 36.4; O2SAT 94
[2025-07-16 11:35] VITALS: BP 137/73; PULSE 74; RESP 17; TEMP 36.3; O2SAT 92
[2025-07-16 13:05] VITALS: BP 124/70; PULSE 63; RESP 16; TEMP 36.7; O2SAT 95
[2025-07-16] MEDS: BENDAMUSTINE IV (13:09)
[2025-07-16 13:46] VITALS: BP 118/70; PULSE 67; RESP 17; TEMP 36.7; O2SAT 95
[2025-07-17 07:58] VITALS: BP 154/92; PULSE 97; RESP 17; TEMP 37; O2SAT 96
[2025-07-17] MEDS: dexamethasone 4 mg/mL INJ 5 mL 12 MG IVP (08:07)
[2025-07-17] MEDS: GRANISETRON 1 MG/ML IV (08:24)
[2025-07-17] MEDS: SODIUM CHLORIDE 0.9% IV (08:45)
[2025-07-17] MEDS: BENDAMUSTINE IV (08:45)
[2025-07-17 09:11] VITALS: BP 147/84; PULSE 76; RESP 17; TEMP 37.2; O2SAT 96
== END 2025-08-04 23:59 | disposition home or self-care (01) ==
PROVIDERS: PCP Family Medicine; Visit Provider Internal Medicine Medical Oncology
DX: Z53.9 Procedure and treatment not carried out, unspecified reason (principal)
CPT/HCPCS: 80053; 83615; 85025; 96375; 96409; 96413; 96415; 96417; J1100; J1626; J7040; J7050; J9034; J9999; Q5123

== ENCOUNTER 2025-08-14 07:46 | Oncology outpatient (recurring) (ONCR) | payer BC, SELFPAY ==
[2025-08-13 07:35] LABS: Hematocrit 38.5 % (37-53); Hemoglobin 13.30 g/dL (11.27-16.99); Mean Corpuscular HGB Conc 34.5 g/dL (30-55); Mean Corpuscular Hemoglobin 33.1 pg (27-33); Mean Corpuscular Volume 95.8 fl (82-101); Nucleated Red Blood Cells % 0 %; Platelet Count 219 10^3/cmm (157-399); Red Blood Count 4.02 10^6/uL (3.85-5.65); White Blood Count 2.99 10^3/uL (3.29-11.43)
[2025-08-13 07:47] LABS: Alanine Aminotransferase 27 U/L (0-41); Albumin Level 4.4 g/dL (3.5-5.2); Alkaline Phosphatase 65 U/L (40-130); Anion Gap 13.0 (5-19); Aspartate Amino Transferase 23 U/L (0-40); Blood Urea Nitrogen 16 mg/dL (8-23); Calcium 9.0 mg/dL (8.5-10.5); Carbon Dioxide 28 mmol/L (22-29); Chloride 104 mmol/L (98-107); Globulin 2.3 g/dL (1.3-4.6); Glucose 98 mg/dL (65-115); Osmolality Calculated 293 mOsm/kg (285-295); Potassium 4.0 mmol/L (3.5-5.1); Sodium 141 mmol/L (136-145); Total Protein 6.7 g/dL (6.6-8.7)
[2025-08-13 09:00] VITALS: BP 145/97; PULSE 94; RESP 16; TEMP 37.1; O2SAT 96
[2025-08-13] MEDS: dexamethasone 4 mg/mL INJ 5 mL 12 MG IVP (09:14)
[2025-08-13] MEDS: ondansetron 2 mg/ML SDV 2 mL 8 MG IVP (09:16)
[2025-08-13 09:52] VITALS: BP 147/90; PULSE 84; RESP 16; TEMP 37.2; O2SAT 93
[2025-08-13 10:23] VITALS: BP 147/78; PULSE 74; RESP 16; TEMP 37.2; O2SAT 95
[2025-08-13 10:53] VITALS: BP 138/82; PULSE 78; RESP 16; TEMP 37; O2SAT 95
[2025-08-13 11:23] VITALS: BP 147/86; PULSE 83; RESP 16; TEMP 37; O2SAT 91
[2025-08-13 13:11] VITALS: BP 122/71; PULSE 79; RESP 16; TEMP 36.6; O2SAT 95
[2025-08-14 07:55] VITALS: BP 161/91; PULSE 86; RESP 17; TEMP 36.6; O2SAT 97
[2025-08-14] MEDS: dexamethasone 4 mg/mL INJ 5 mL 12 MG IVP (08:13)
[2025-08-14] MEDS: GRANISETRON 1 MG/ML IV (08:17)
[2025-08-14] MEDS: FLU VACC TS2025-26(6MOS UP)/PF 45 MCG/0.5 ML SYRINGE IM (08:19)
[2025-08-14 09:05] VITALS: BP 151/82; PULSE 82; RESP 16; TEMP 36.8; O2SAT 97
== END 2025-09-04 23:59 | disposition home or self-care (01) ==
PROVIDERS: Nurse Practitioner; PCP Family Medicine; Visit Provider Internal Medicine Medical Oncology
DX: Z51.11 Encounter for antineoplastic chemotherapy (principal); Z23 Encounter for immunization; C82.90 Follicular lymphoma, unspecified, unspecified site; Z79.899 Other long term (current) drug therapy; Z79.52 Long term (current) use of systemic steroids
CPT/HCPCS: 80053; 83615; 85025; 90471; 90656; 96375; 96409; 96411; 96413; 96415; J1100; J1626; J2405; J7040; J7050; J9034; J9999; Q5123

== ENCOUNTER 2025-08-28 13:19 | Emergency (ER) | payer BC, SELFPAY ==
--- OUTSIDE RECORDS SUMMARY | 2025-08-28 13:24 | XMS_ITS | Encounter Summary ---
Author Organization [facility] Address [address] [place] [address] Care Team Providers Care Bridge Tender Name Role Phone Unavailable Primary Care Provider Unavailabl e Encounter Details Date Type Department Care Team (Late st Contact Info) Description 08/14/2008 Outpatient Historical Endoscopy [place] [address] [place] [address] Shubham Manuel MD [address] [place] [address] Social History Tobacco Use Types Packs/Day Years Used Date Smoking Tobacco: Never Assessed Sex and Gender Information Value Date Recorded Sex Assigned at Not on file 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 Gender Identity Not on file Sexual Orientation Not on file documented as of this encounter Plan of Treatment Not on file documented as of this encounter Procedures Procedure Name Priority Date/Time Associated Diagnosis Comments PATHOLOGY Routine 08/21/2008 12:49 PM BUCKLE SEWER MACHINE documented in this encounter Results * PATHOLOGY (08/21/2008 12:49 PM BUCKLE SEWER MACHINE) PATHOLOGY/CYT OLOGY REPORT [facility] Anatomic Pathology Dept [address] [address] Patient: STEPHANIE WEINER Accn No: [id number] Collected: 08/21/2008 12:49:00 PM SURGICAL PATHOLOGY FINAL REPORT Diagnosis A. Colon, right, biopsy - benign colonic mucosa with no significant microscopic abnormality. Tung Macias M.D. (Electronicall y signed by) Verified: 08/22/08 SEC/TKB Clinical Information None. Specimen Source AColon Microscopic Description Microscopic examination was performed. Gross Description Part A. Submitted in a container of formalin labelled Rossy - #1 right colon biopsies are four fung tissue fragments ranging in size from 0.2 to 0.4 cm. The specimen is submitted entirely in A1. DLS/WLS INTERFACE SYSTEM 08/21/2008 12:4 9 PM BUCKLE SEWER MACHINE us Shubham Manuel MD PATHOLOGY/CYTOLOGY ORDERABLES Final Result INTERFACE SYSTEM Refer to clinic/hospital department documented in this encounter Visit Diagnoses Not on filedocumented in this encounter
--- OUTSIDE RECORDS SUMMARY | 2025-08-28 13:24 | XMS_ITS | Clinical Summary ---
Author Organization [facility] Address [address] Attn: Epic Prelude ADT JEFFRY SALTER [address] Care Team Providers Care Dish Carrier Name Role Phone Unavailable Primary Care Provider Unavailabl e Allergies Active Allergy Reactions Criticality Noted Date Comments Amoxicillin-Pot Clavulanate Rash Low 12/03/19 25 Clonidine Unknown 12/02/2024 Metoprolol Unknown 12/02/2024 Medications ALPRAZolam (XANAX) 0.5 mg tablet Take 1 Tablet by mouth 3 times daily. 11/26/2024 Active benazepriL (LOTENSIN) 40 mg tablet Take 1 Tablet by mouth daily. 10/10/2024 Active tamsulosin (FLOMAX) 0.4 mg capsule Take 1 Capsule by mouth daily. 10/02/2024 Active doxazosin (CARDURA) 4 mg tablet Take 1 Tablet by mouth daily. 10/02/2024 Active hydroCHLOROthia zide 25 mg tablet Take 1 Tablet by mouth daily. 10/02/2024 Active omeprazole (PriLOSEC) 20 mg Capsule, Delayed Release(E.C.) Take 1 Capsule by mouth daily. 10/02/2024 Active Tiadylt ER 360 mg Extended Release capsule Take 1 Capsule by mouth daily. 10/02/2024 Active sertraline (Zoloft) 50 mg tablet Take 1 Tablet (50 mg) by mouth daily. 30 Tablet 1 12/04/2024 Active Active Problems Problem Noted Date Diagnosed Date Obesity (BMI 30-39.9) 12/03/2024 Bilateral renal masses 12/02/2024 Bloody diarrhea 12/02/2024 BPH (benign prostatic hyperplasia) 12/02/2024 Hypertension 12/02/2024 Severe anxiety with panic 12/02/2024 Encounters Date Type Department Care Team Description 08/20/2025 External Device Data [facility] ABSTRACTION Provider, Abstract 07/30/2025 External Device Data [facility] ABSTRACTION Provider, Abstract 07/16/2025 External Device Data [facility] ABSTRACTION Provider, Abstract 06/11/2025 External Device Data [facility] ABSTRACTION Provider, Abstract 06/04/2025 External Device Data [facility] ABSTRACTION Provider, Abstract 06/04/2025 External Device Data [facility] ABSTRACTION Provider, Abstract from Last 3 Months Social History Tobacco Use Types Packs/Day Years Used Date Smoking Tobacco: Never Smokeless Tobacco: Never Tobacco Cessation:Counseling Given: Not Answered Alcohol Use Standard Drinks/Week Comments Never 0 (1 standard drink = 0.6 oz pur e alcohol) Feeling Safe Answer Date Recorded Are you in a relationship wi th someone who hurts you emotionally and/or physically? No 12/02/2024 Food Insecurity Answer Date Recorded Patient needs follow up regardin 12/27/2024 Transportation Needs Answer Date Record ed Patient needs follow up regardin 12/27/2024 Housing Stability Answer Date Recorded Social/Environmental Concerns No concerns Utility Needs Answer Date Recorded Patient needs follow up regardin 12/27/2024 Sex and Gender Information Value Date Recorded Sex Assigned at Not on file Legal Sex Male 12:51 AM COUTIERIER Gender Identity Not on file Sexual Orientation Not on file Last Filed Vital Signs Vital Sign Reading Time Taken Comments Blood Pressure 116/63 03/06/2025 10:00 AM CDT Pulse 51 03/06/2025 10:00 AM CDT Temperature 36.5 C (97.7 F) 03/06/2025 10:00 AM CDT Respiratory Rate 16 03/06/2025 10:00 AM CDT Oxygen Saturation 94% 03/06/2025 10:00 AM CDT Inhaled Oxygen Concentration - - Weight 101.6 kg (224 lb) 03/06/2025 6:43 AM CDT Height 177.8 cm (5' 10 ) 03/06/2025 6:43 AM CDT Body Mass Index 32.14 03/06/2025 6:43 AM CDT Plan of Treatment Health Maintenance Due Date Last Done Comments Pre-Diabetes and Diabetes Screening 1961 DTAP/TDAP/TD VACCINES (1 - Tdap) 1980 FIT-DNA Q 3 years 2006 FIT/FOBT Q 1 year 2006 Flex Sig/CT Colonography Q 5 years 2006 ZOSTER VACCINE (1 of 2) 12/26/2011 COLORECTAL SCREENING 08/21/2018 08/21/2008 Colorectal Cancer Screening 08/21/2018 INFLUENZA VACCINE (#1) 2025 RSV VACCINE (60+ or ) (1 - 1-dose 75+ series) 2036 Insurance [facility] P[facility]ERR[facility] Advance Directives For more information, please contact: [phone] * Full Code (Latest Code Status on File) Date Activated Date Inactivated Comments 12/02/2024 8:33 PM 12/04/2024 2:45 PM
--- OUTSIDE RECORDS SUMMARY | 2025-08-28 13:24 | XMS_ITS | Encounter Summary ---
Author Organization [facility] Address 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
--- OUTSIDE RECORDS SUMMARY | 2025-08-28 13:24 | XMS_ITS | Clinical Summary ---
Author Organization [facility] [place] Address [address] 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 Gender Identity Not on file Sexual Orientation Not on file Plan of Treatment Health Maintenance Due Date Last Done Comments DTAP/TDAP/TD VACCINES (1 - Tdap) 1980 FIT-DNA Q 3 years 2006 FIT/FOBT Q 1 year 2006 Flex Sig/CT Colonography Q 5 years 2006 ZOSTER VACCINE (1 of 2) 12/26/2011 COLORECTAL SCREENING 08/21/2018 08/21/2008 Colorectal Cancer Screening 08/21/2018 INFLUENZA VACCINE (#1) 2025 RSV VACCINE (60+ or ) (1 - 1-dose 75+ series) 2036 Procedures Procedure Name Priority Date/Time Associated Diagnosis Comments ENDOSCOPY, COLON, SCREENING Routine 08/21/2008 from Last 3 Months or Most Recently Relevant to Health Maintenance Results * ENDOSCOPY, COLON, MEDICARE SCREENING (08/21/2008) us Shubham Manuel MD GI PROCEDURE ORDERABLES Final Result from Last 3 Months or Most Recently Relevant to Health Maintenance
--- NOTE | 2025-08-28 13:25 | XR_ITS ---
WS: [id number] Portable AP upright chest, 08/28/2025 Clinical Data: Shortness of breath Comparison: . Findings: There is a left lower lobe opacity which could represent pneumonia and/or atelectasis. The right lung is clear. No nodules, masses or effusions are seen. The heart is normal. The pulmonary vascularity is not increased. No pneumothorax is seen. The aortic arch shows tortuosity. There is a right infusion catheter ending in the superior vena cava. XR/XR chest 1V portable [id number] Impression: 1. Left lower lobe opacity which could represent atelectasis and/or pneumonia. 2. Atherosclerosis.
[2025-08-28 13:36] VITALS: BP 155/89; PULSE 97; TEMP 37.3; O2SAT 94
--- NOTE | 2025-08-28 13:40 | ECG_ITS ---
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
--- NOTE | 2025-08-28 13:40 | W.ED.SOB ---
HPI - SOB/Dyspnea General: Chief Complaint: Shortness of Breath/Dyspnea Stated Complaint: O2 Low Weakness tiredness Time Seen by Provider: 08/28/25 13:35 History of Present Illness: HPI Narrative: 64-year-old man with history of lymphoma with recently completed chemotherapy awaiting repeat PET scan, hypertension, and anxiety who presents to the emergency room with upper respiratory symptoms. He says he has been feeling bad for 3 to 4 days now. Cough. Congestion. Some mild shortness of breath. Some pleuritic past chest pain in left chest. He denies any leg pain or swelling. Related Data Home Medications ?Medication ?Instructions ?Recorded ?Confirmed tamsulosin 0.4 mg capsule (Flomax) 0.4 mg PO DAILY 04/29/20 08/13/25 omeprazole 20 mg capsule,delayed 20 mg PO DAILY 10/14/20 08/13/25 release benazepril 40 mg tablet 40 mg PO DAILY 02/11/25 08/13/25 diltiazem HCl 360 mg capsule,24 360 mg PO DAILY 02/11/25 08/13/25 hr,extended release (Tiadylt ER) doxazosin 4 mg tablet 4 mg PO DAILY 02/11/25 08/13/25 alprazolam 0.5 mg tablet (Xanax) 0.5 mg PO TID PRN nervousness 02/19/25 08/13/25 Previous Rx's ?Medication ?Instructions ?Recorded fluconazole 100 mg tablet 100 mg PO DAILY fungal infection 02/12/25 prevention #90 tabs ondansetron HCl 4 mg tablet 4 mg PO Q6H PRN nausea and 02/12/25 vomiting #30 tabs prochlorperazine maleate 10 mg 10 mg PO Q4H PRN mild nausea #30 02/12/25 tablet (Compazine) tabs sulfamethoxazole 800 1 tab PO MOWEFR infection 02/12/25 mg-trimethoprim 160 mg tablet prevention #24 tabs (Bactrim DS) valacyclovir 500 mg tablet 500 mg PO BID #60 tabs 02/12/25 granisetron HCl 1 mg/mL 1 mg IV .once on day 2 21 days #4 03/05/25 intravenous solution mL lidocaine-prilocaine 2.5 %-2.5 % 1 applic topical .COMPLEX #30 grams 03/19/25 topical cream allopurinol 300 mg tablet 300 mg PO DAILY #30 tabs 06/03/25 bendamustine 25 mg/mL intravenous 276 mg (11.04 mL) IV .daily x2 21 07/30/25 solution (Bendeka) days #24 mL rituximab-pvvr 10 mg/mL 850 mg (85 mL) IV .on day 2 21 07/30/25 intravenous solution days #100 mL pegfilgrastim 6 mg/0.6 mL 6 mg (0.6 mL) SUBCUT .on day 2 21 07/31/25 (deliverable) wearable days #0.6 mL subcutaneous injector (Neulasta Onpro) rituximab-arrx 10 mg/mL 850 mg (85 mL) IV Q28D 1 day #85 mL 08/05/25 intravenous solution (Riabni) apixaban 5 mg (74 tabs) tablets in 5 mg PO BID #74 ea 08/28/25 a dose pack (Eliquis DVT-PE Treat 30D Start) doxycycline hyclate 100 mg capsule 100 mg PO BID 7 days #14 caps 08/28/25 Allergies Allergy/AdvReac Type Severity Reaction Status Date / Time amoxicillin (From Augmentin) Allergy Unknown ALGY-Rash Verified 08/28/25 13:40 clavulanic acid (From Allergy Unknown ALGY-Rash Verified 08/28/25 13:40 Augmentin) Iodinated Contrast Media Allergy ADR-Itching Verified 08/28/25 13:40 Review of Systems Narrative: Constitutional symptoms: Negative except as documented in HPI. Skin symptoms: Negative except as documented in HPI. Eye symptoms: Negative except as documented in HPI. ENMT symptoms: Negative except as documented in HPI. Respiratory symptoms: Negative except as documented in HPI. Cardiovascular symptoms: Negative except as documented in HPI. Gastrointestinal symptoms: Negative except as documented in HPI. Genitourinary symptoms: Negative except as documented in HPI. Musculoskeletal symptoms: Negative except as documented in HPI. Neurologic symptoms: Negative except as documented in HPI. Psychiatric symptoms: Negative except as documented in HPI. Endocrine symptoms: Negative except as documented in HPI. PFSH ED PFSH: Medical History (Updated 08/28/25 @ 15:52 by Leslie Solitario MD) BPH (benign prostatic hyperplasia) Hypertension Surgical History Status post colonoscopy Status post laparoscopic cholecystectomy (10/15/20) Family History Denies family history of Anesthesia complication Bleeding disorder Social History Smoking and tobacco/nicotine status: never used tobacco/nicotine Alcohol intake: never Substance/Drug Use: never Current gender identity: Male Physical Exam Narrative: EXAM NARRATIVE: General: Alert, no acute distress. Skin: Warm, dry. Head: Normocephalic, atraumatic. Neck: Supple, trachea midline. Eye: Extraocular movements are intact. Ears, nose, mouth and throat: mucosa moist. Cardiovascular: Regular, tachycardic, normal peripheral perfusion. Respiratory: Lungs are clear to auscultation, respirations are non-labored, breath sounds are equal, Symmetrical chest wall expansion. Gastrointestinal: Soft, Nontender, Non distended Musculoskeletal: Normal ROM, no deformity. Neurological: Alert and oriented, No focal neurological deficit observed. Psychiatric: Cooperative, appropriate mood & affect. Course Vital Signs: Vital signs: Vital Signs Temperature 99.2 F 08/28/25 13:36 Pulse Rate 91 08/28/25 15:10 Blood Pressure 117/79 08/28/25 15:10 Pulse Oximetry 95 08/28/25 15:10 Oxygen Delivery Me thod Room Air 08/28/25 15:10 MDM - SOB/Dyspnea Medical Decision Making Medical decision making Patient's reason for coming to the emergency room: Weakness, tiredness, left lateral chest pain Social determinants: Patient is retired. . is present. I reviewed the patient's medical record. 64-year-old man with history of lymphoma with recently completed chemotherapy awaiting repeat PET scan, hypertension, and anxiety I reviewed the patient's current home meds Patient is not currently on any anticoagulation Alternate historians: None Differential diagnosis for patient with shortness of breath includes but is not limited to and based on the above HPI, review of systems and physical exam: Pneumonia. Bronchitis. Asthma or COPD with acute exacerbation. Acute coronary syndrome / ND. Pulmonary embolism. Anxiety. Congestive heart failure. Viral infections including influenza and Covid-19. Atrial fibrillation. Anxiety. Pleural effusion. Pneumothorax. Orders placed to evaluate differential diagnosis based on the above differential, HPI and physical exam EKG: Time 1340. Rate 105. Sinus tachycardia, No ST-T changes, no ectopy, normal MT & QRS intervals, This was reviewed and interpreted by myself the ER physician at 1344 Repeat EKG: Time 1428. Rate 96. Normal sinus rhythm, No ST-T changes, no ectopy, normal MT & QRS intervals, This was reviewed and interpreted by myself the ER physician at 1453. No significant changes from EKG done previously today in the emergency room. Rate has dropped somewhat. Chest x-ray: Infiltrate in the left lower lobe that may be a pneumonia. This was reviewed and interpreted by myself the emergency room physician. I also reviewed the radiology report. Lab Review: Laboratory results were reviewed and interpreted by myself the emergency room physician. No leukocytosis. No anemia. No renal failure. D-dimer was elevated. Serial cardiac markers are negative. CTA chest PE protocol: This was done secondary to elevated D-dimer. This does show an opacity in the left lower lobe that appears to be a pulmonary infarct and pulmonary embolus. This was reviewed and interpreted by myself the emergency room physician. I also reviewed the radiology report. Reexamination: Patient has not required any oxygen. No increased work of breathing. He did have a bit of a temperature. Heart rate has come down some. He is in no distress. No indication for admission today. Assessment and plan: Pulmonary embolism ? First dose Eliquis here. Cannot rule out an infection so doxycycline is given as well. - Discharged home - Discussed plan with patient. Answered any questions. - Evaluation and treatment of this problem were appropriate in the emergency setting. Lab Data 08/28/25 13:46 08/28/25 13:46 Labs/Radiology: Radiology Impressions Chest X-Ray 08/28/25 13:25 Impression: 1. Left lower lobe opacity which could represent atelectasis and/or pneumonia. 2. Atherosclerosis. Chest CTA 08/28/25 14:29 IMPRESSION: Suboptimal study although there is concern for a left lower lobe segmental embolus with pulmonary infarct. Trace left pleural fluid. No CT evidence of right heart strain. THIS REPORT CONTAINS FINDINGS THAT MAY BE CRITICAL TO PATIENT CARE. The findings were verbally communicated via telephone conference with LESLIE SOLITARIO at 3:47 PM RECAPPER on 08/28/2025. The findings were acknowledged and understood. COMMENTS: Consistent with the [place] [employer]'s Incidental Findings Committee white paper (J Am Nohelia Radiol 2015): In patients aged 35 years and older with an incidental thyroid nodule equal to or greater than 1.[address], MRI or extrathyroidal US, further evaluation with dedicated thyroid US is recommended for patients with normal life expectancy and without comorbidities. For smaller nodules without suspicious features, no further evaluation or follow up is recommended. Laboratory Results WBC 9.27 10^3/uL (3.29-11.43) 08/28/25 13:46 RBC 3.65 10^6/uL (3.85-5.65) L 08/28/25 13:46 Hgb 12.10 g/dL (11.27-16.99) 08/28/25 13:46 Hct 35.9 % (37-53) L 08/28/25 13:46 MCV 98.4 fl (82-101) 08/28/25 13:46 MCH 33.2 pg (27-33) H 08/28/25 13:46 MCHC 33.7 g/dL (30-55) 08/28/25 13:46 RDW 13.2 % (12.1-15.1) 08/28/25 13:46 Plt Count 160 10^3/cmm (157-399) 08/28/25 13:46 MPV 8.9 fL (7.4-10.4) 08/28/25 13:46 Neut % (Auto) 85.5 % 08/28/25 13:46 Lymph % (Auto) 2.3 % 08/28/25 13:46 [place] % (Auto) 11.5 % 08/28/25 13:46 Eos % (Auto) 0.1 % 08/28/25 13:46 Baso % (Auto) 0.1 % 08/28/25 13:46 Neut # (Auto) 7.92 10^3/uL (1.8-7.7) H 08/28/25 13:46 Lymph # (Auto) 0.2 10^3/uL (0.8-4.8) L 08/28/25 13:46 [place] # (Auto) 1.1 10^3/uL (0.2-0.9) H 08/28/25 13:46 Eos # (Auto) 0.0 10^3/uL (0.0-0.8) 08/28/25 13:46 Baso # (Auto) 0.0 10^3/uL (0.0-0.1) 08/28/25 13:46 Nucleated RBC % (auto) 0 % 08/28/25 13:46 Nucleated RBCs # 0.0 /100WBC 08/28/25 13:46 D-Dimer 1.44 ug/mLFEU (0-0.59) H 08/28/25 13:46 Specimen Type Arterial 08/28/25 13:50 Sample Site Radial, right 08/28/25 13:50 ABG pH 7.46 (7.35-7.45) H 08/28/25 13:50 ABG pCO2 35.8 mmHg (35-45) 08/28/25 13:50 ABG pO2 59.2 mmHg (80.0-100.0) L 08/28/25 13:50 ABG PO2/FiO2 Ratio 281 08/28/25 13:50 ABG HCO3 25.2 mmol/L (22-26) 08/28/25 13:50 ABG O2 Saturation 93.9 08/28/25 13:50 ABG Base Excess 1.4 mmol/L (-2.0-2.0) 08/28/25 13:50 Bean Test Pos 08/28/25 13:50 A-a O2 Gradient 6.0 mmHg (5-10) 08/28/25 13:50 Hematocrit 37.7 % (42-52) L 08/28/25 13:50 Hgb O2 Saturation 91.4 % (95-100) L 08/28/25 13:50 Carboxyhemoglobin 1.5 %THgb (0.4-20.1) 08/28/25 13:50 Methemoglobin 1.2 % (0.4-1.5) 08/28/25 13:50 Total Hemoglobin 12.3 g/dL (14-18) L 08/28/25 13:50 Sodium 137.0 mmol/L (131-143) 08/28/25 13:50 Potassium 3.6 mmol/L (3.5-5.0) 08/28/25 13:50 Glucose 159.0 mg/dL (70-115) H 08/28/25 13:50 Ionized Calcium 1.2 mmol/L (1.1-1.4) 08/28/25 13:50 O2 Delivery Device Room air 08/28/25 13:50 FiO2 21.0 % 08/28/25 13:50 Legal Activity Adjudicator ID Waoci 08/28/25 13:50 Sodium 137 mmol/L (136-145) 08/28/25 13:46 Potassium 3.6 mmol/L (3.5-5.1) 08/28/25 13:46 Chloride 100 mmol/L (98-107) 08/28/25 13:46 Carbon Dioxide 21 mmol/L (22-29) L 08/28/25 13:46 Anion Gap 19.6 (5-19) H 08/28/25 13:46 BUN 15 mg/dL (8-23) 08/28/25 13:46 Creatinine 1.0 mg/dL (0.7-1.2) 08/28/25 13:46 GFR Calculation 75.5 mL/min (90-130) L 08/28/25 13:46 Glucose 156 mg/dL (65-115) H 08/28/25 13:46 Calculated Osmolality 288 mOsm/kg (285-295) 08/28/25 13:46 Lactic Acid 2.0 mmol/L (0.5-2.2) 08/28/25 13:46 Calcium 8.7 mg/dL (8.5-10.5) 08/28/25 13:46 Total Bilirubin 0.3 mg/dL (0.15-1.2) 08/28/25 13:46 AST 17 U/L (0-40) 08/28/25 13:46 ALT 17 U/L (0-41) 08/28/25 13:46 Alkaline Phosphatase 55 U/L (40-130) 08/28/25 13:46 Troponin T Baseline 10 ng/L (0-15) 08/28/25 13:46 Troponin T 60 Minute 8.91 ng/L (0-15) 08/28/25 14:27 Delta Troponin T -1.09 ABS# (0-10) L 08/28/25 14:27 C-Reactive Protein 150.8 mg/L (0.0-4.9) H 08/28/25 13:46 NT-Pro-B Natriuret Pep 47 pg/mL (0-125) 08/28/25 13:46 Total Protein 6.2 g/dL (6.6-8.7) L 08/28/25 13:46 Albumin 3.7 g/dL (3.5-5.2) 08/28/25 13:46 Globulin 2.5 g/dL (1.3-4.6) 08/28/25 13:46 Procalcitonin 0.24 ng/mL (0-0.5) 08/28/25 13:46 Influenza A (PCR) Negative (Negative) 08/28/25 14:14 Influenza Type B (PCR) Negative (Negative) 08/28/25 14:14 RSV (PCR) Negative (Negative) 08/28/25 14:14 SARS-CoV-2 (PCR) Negative (Negative) 08/28/25 14:14 All radiology interpretation(s) finalized by discharge Discharge Plan Discharge Patient Disposition: Home Clinical Impression: Pulmonary embolism Condition: Stable Prescriptions: New doxycycline hyclate 100 mg capsule 100 mg PO BID 7 Days Qty: 14 0RF Eliquis DVT-PE Treat 30D Start 5 mg (74 tabs) tablets,dose pack 5 mg PO BID Qty: 74 0RF Rx Instructions: 2 tabs (10 mg) BID x 7 days, then 1 tab BID No Action tamsulosin [Flomax] 0.4 mg capsule 0.4 mg PO DAILY diltiazem HCl [Tiadylt ER] 360 mg capsule,extended release 24 hr 360 mg PO DAILY doxazosin 4 mg tablet 4 mg PO DAILY benazepril 40 mg tablet 40 mg PO DAILY Patient Comments: patient instructed to take half tablet fluconazole 100 mg tablet 100 mg PO DAILY Qty: 90 2RF ondansetron HCl 4 mg tablet 4 mg PO Q6H PRN (Reason: nausea and vomiting) Qty: 30 3RF prochlorperazine maleate [Compazine] 10 mg tablet 10 mg PO Q4H PRN (Reason: mild nausea) Qty: 30 3RF valacyclovir 500 mg tablet 500 mg PO BID Qty: 60 5RF Rx Instructions: Continue 3 months post treatment for prevention of viral infection sulfamethoxazole-trimethoprim [Bactrim DS] 800-160 mg tablet 1 tab PO MOWEFR Qty: 24 5RF granisetron HCl 1 mg/mL solution 1 mg IV .once on day 2 21 Days Qty: 4 5RF Rx Instructions: Administer once on day 2 thirty minutes prior to treatment of a 21 day cycle lidocaine-prilocaine 2.5-2.5 % cream 1 applic topical .COMPLEX Qty: 30 2RF Rx Instructions: Apply quarter-size amount to port site 30 minutes prior to access; cover with cling wrap allopurinol 300 mg tablet 300 mg PO DAILY Qty: 30 3RF bendamustine [Bendeka] 25 mg/mL solution 276 mg IV .daily x2 21 Days Qty: 24 5RF Rx Instructions: administer on days 1 and 2 of a 21 day cycle rituximab-pvvr 10 mg/mL solution 850 mg IV .on day 2 21 Days Qty: 100 5RF Rx Instructions: administer on day 2 of a 21 day cycle Neulasta Onpro 6 mg/0.6 mL syringe, w/ wearable injector 6 mg SUBCUT .on day 2 21 Days Qty: 0.6 1RF Rx Instructions: Administer on day 2 of a 21 day cycle Riabni 10 mg/mL solution 850 mg IV Q28D 1 Days Qty: 85 0RF Rx Instructions: 850 mg iv infusion day 1 of 28 day cycle omeprazole 20 mg capsule,delayed release(DR/EC) 20 mg PO DAILY alprazolam [Xanax] 0.5 mg Tablet 0.5 mg PO TID PRN (Reason: nervousness) Discharge Orders: Discharge ED (Routine); Ordered 08/28/25 Ordered By: Leslie Solitario Referrals: Abelino Bergman [Primary Care Provider, Family Practice] Patient Instructions: Apixaban (By mouth) (Eliquis), Pulmonary Embolism (ED), Opioid Safety, Pain Management, Patient Portal & Caity Instructions Activity Restrictions/Additional Instructions: If you develop worsening chest pain, shortness of breath, low oxygen saturations or other concerns please return to the emergency room. Thank you for choosing [facility] for your healthcare needs today. You have been screened and evaluated and felt safe for discharge. Health conditions do change or evolve sometimes and as such it is important that you follow up with your Primary Doctor to be re checked, 3-5 days is a general good time frame for follow up. You are always welcome to return to the ED for re assessment if your symptoms are worsening or you have new concerns. (Please note that included in your discharge packet is information concerning opioid safety and pain management. This information is given to all patients who are discharged from the ER regardless of their discharge diagnosis or the medicines they usually take or are prescribed.) Print Language: Belarusian Coding Level of Care Code ED Custom Bow Maker for Syed Kearney
[2025-08-28 13:56] LABS: Hematocrit 35.9 % (37-53); Hemoglobin 12.10 g/dL (11.27-16.99); Mean Corpuscular HGB Conc 33.7 g/dL (30-55); Mean Corpuscular Hemoglobin 33.2 pg (27-33); Mean Corpuscular Volume 98.4 fl (82-101); Nucleated Red Blood Cells % 0 %; Platelet Count 160 10^3/cmm (157-399); Red Blood Count 3.65 10^6/uL (3.85-5.65); White Blood Count 9.27 10^3/uL (3.29-11.43)
[2025-08-28 14:01] LABS: ABG PCO2 35.8 mmHg (35-45); ABG PH Result 7.46 (7.35-7.45); Alveolar-Arterial Oxygen Gradi 6.0 mmHg (5-10); Arterial Blood Gas Hematocrit 37.7 % (42-52); Blood Gas Allen Test Pos; Blood Gas Operator Identificat WAOCI; Blood Gas Sample Site Radial, right; Blood Gas Sample Type Arterial; Carboxyhemoglobin 1.5 %THgb (0.4-20.1); Glucose Level-ABG 159.0 mg/dL (70-115); HCO3 ABG 25.2 mmol/L (22-26); Ionized Calcium Level - ABG 1.2 mmol/L (1.1-1.4); Methemoglobin 1.2 % (0.4-1.5); Oxygen Saturation ABG 93.9; PO2 ABG 59.2 mmHg (80.0-100.0); PO2 FiO2 Ratio Arterial Blood 281; Potassium Level - ABG 3.6 mmol/L (3.5-5.0); Sodium Level - ABG 137.0 mmol/L (131-143)
[2025-08-28 14:11] VITALS: BP 145/78; PULSE 100; O2SAT 96
[2025-08-28 14:12] LABS: Lactic Sepsis W/Reflex 2.0 mmol/L (0.5-2.2)
--- NOTE | 2025-08-28 14:24 | ECG_ITS ---
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
--- NOTE | 2025-08-28 14:29 | CTR_ITS ---
PROCEDURE INFORMATION: Exam: CTA Chest With Contrast Exam date and time: 08/28/2025 3:21 PM Age: 64 years old Clinical indication: Other: Chest pain, elevated ddimer TECHNIQUE: Imaging protocol: Computed tomographic angiography of the chest with contrast. Exam focused on the arteries. 3D rendering (Not supervised by radiologist): MIP and/or 3D reconstructed images were created by the technologist. Radiation optimization: All CT scans at this facility use at least one of these dose optimization techniques: automated exposure control; mA and/or kV adjustment per patient size (includes targeted exams where dose is matched to clinical indication); or iterative reconstruction. Contrast material: [id number]; Contrast volume: 100 ml; Contrast route: INTRAVENOUS (IV); COMPARISON: PT PET skull to thigh SUBS [id number] 06/07/2025 9:03 AM RADIATION DOSE METRICS: Total DLP (mGy-cm): 600 FINDINGS: Tubes, catheters and devices: Right-sided Port-A-Cath is present with the tip in the lower SVC Pulmonary arteries: Limited evaluation due to motion and diminished arterial opacification. Nonetheless, a segmental filling defect is seen within the anteromedial basal left lower lobe pulmonary artery which is suspicious for pulmonary embolus with corresponding pulmonary infarct in the left lower lobe. Normal LV to RV ratio without CT evidence of right heart strain. Aorta: 4 cm ascending thoracic aorta at the level of the right main pulmonary artery. Systemic aortic and coronary artery plaque. Thyroid: 13 mm hypodense left thyroid lobe nodule which requires no follow-up based on size. Lungs: Background of left basilar scarring. Worsened bibasilar opacities which partially represent atelectasis although there is hypoattenuating airspace disease in the left lower lobe . This is partially bubbly in appearance with associated ground-glass attenuation and is suspicious for a pulmonary infarct Pleural spaces: Trace left pleural effusion Heart: Within normal limits. Lymph nodes: Lower right paratracheal lymph node measures 11 mm in short axis with ovoid shape and fatty hilum. Liver: Multiple hepatic cysts as well as subcentimeter hypodensities. Gallbladder and biliary ducts: The gallbladder is surgically absent. Kidneys: Heterogeneous solid left upper renal pole lesion, partially visualized. This may be related to known lymphoma. Bones/joints: Bridging anterior ossification in the spine. Soft tissues: Probably a cyst along the upper back CT/CT angio chest PE protcl [id number] IMPRESSION: Suboptimal study although there is concern for a left lower lobe segmental embolus with pulmonary infarct. Trace left pleural fluid. No CT evidence of right heart strain. THIS REPORT CONTAINS FINDINGS THAT MAY BE CRITICAL TO PATIENT CARE. The findings were verbally communicated via telephone conference with JONAS ACEVEDO at 3:47 PM PAPIER MACHE' MOLDER on 08/28/2025. The findings were acknowledged and understood. COMMENTS: Consistent with the [place]'s Incidental Findings Committee white paper (J Am Nohelia Radiol 2015): In patients aged 35 years and older with an incidental thyroid nodule equal to or greater than 1.[address], MRI or extrathyroidal US, further evaluation with dedicated thyroid US is recommended for patients with normal life expectancy and without comorbidities. For smaller nodules without suspicious features, no further evaluation or follow up is recommended.
[2025-08-28 14:41] LABS: Troponin(5th) Baseline 10 ng/L (0-15)
[2025-08-28 14:57] LABS: Respiratory Syncytial Virus Ce NEGATIVE (Negative); SARS-CoV-2 PCR NEGATIVE (Negative)
[2025-08-28 15:06] LABS: Alanine Aminotransferase 17 U/L (0-41); Albumin Level 3.7 g/dL (3.5-5.2); Alkaline Phosphatase 55 U/L (40-130); Anion Gap 19.6 (5-19); Aspartate Amino Transferase 17 U/L (0-40); Blood Urea Nitrogen 15 mg/dL (8-23); Calcium 8.7 mg/dL (8.5-10.5); Carbon Dioxide 21 mmol/L (22-29); Chloride 100 mmol/L (98-107); Globulin 2.5 g/dL (1.3-4.6); Glucose 156 mg/dL (65-115); NT Pro B Type Natriuretic Pept 47 pg/mL (0-125); Osmolality Calculated 288 mOsm/kg (285-295); Potassium 3.6 mmol/L (3.5-5.1); Procalcitonin 0.24 ng/mL (0-0.5); Sodium 137 mmol/L (136-145); Total Protein 6.2 g/dL (6.6-8.7)
[2025-08-28 15:10] VITALS: BP 117/79; PULSE 91; O2SAT 95
[2025-08-28 16:06] VITALS: BP 154/80; PULSE 110; O2SAT 92
== END 2025-08-28 16:12 | disposition home or self-care (01) ==
PROVIDERS: Emergency Provider Emergency Medicine; PCP Family Medicine
DX: I26.99 Other pulmonary embolism without acute cor pulmonale (principal); Z11.52 Encounter for screening for COVID-19; I10 Essential (primary) hypertension
CPT/HCPCS: 36415; 36600; 71045; 71275; 80051; 80053; 82330; 82805; 83605; 83880; 84145; 84484; 85025; 85378; 86140; 87040; 87637; 93005; 99285; J7512; J9999; Q0163